=== PATIENT | female | born 1985 | race Caucasian/White ===

== ENCOUNTER 2021-09-27 02:45 | Outpatient (CLI) | payer OTHER, SELFPAY | END 2021-09-27 02:46 | disposition home or self-care (01) | LOC: LBO 02:45 | PROVIDERS: PCP Nurse Practitioner; Visit Provider Nurse Practitioner Family ==

== ENCOUNTER 2021-10-04 02:15 | Outpatient (CLI) | payer OTHER, SELFPAY ==
[2021-10-04 12:42] LABS: TSH (W/Ref FT4) 0.99 uIU/mL (0.36-3.74)
[2021-10-04 23:00] LABS: Prolactin 12.3 ng/mL (See Note)
[2021-10-05 09:35] LABS: DHEA Sulfate 738 ug/dL (96-512)
[2021-10-07 16:18] LABS: 17-Hydroxyprogesterone 53 ng/dL
[2021-10-08 17:00] LABS: Testosterone, Total 44 ng/dL (8-60)
== END 2021-10-04 02:16 | disposition home or self-care (01) ==
LOC: LBO 02:15
PROVIDERS: PCP Nurse Practitioner; Visit Provider Nurse Practitioner Family
DX: N92.6 Irregular menstruation, unspecified (principal); L68.0 Hirsutism
CPT/HCPCS: 36415; 82627; 84402; 84403; 83498; 84146; 84443

== ENCOUNTER 2021-10-04 12:51 | Outpatient (REF) | payer OTHER, SELFPAY ==
--- NOTE | 2021-10-04 11:30 | PAPFT_PTH ---
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
== END 2021-10-04 12:52 | disposition home or self-care (01) ==
LOC: LBN 12:51
PROVIDERS: PCP Nurse Practitioner; Visit Provider Nurse Practitioner Family
DX: Z12.4 Encounter for screening for malignant neoplasm of cervix (principal); Z11.51 Encounter for screening for human papillomavirus (HPV)
CPT/HCPCS: 88142; 87624